=== PATIENT | female | born 1995 | race Caucasian/White ===

== ENCOUNTER 2018-07-28 13:52 | Emergency (ER) | payer BC ==
[2018-07-28 13:57] VITALS: BP 128/80; PULSE 95; RESP 18; TEMP 98.2
--- NOTE | 2018-07-28 14:36 | ED ---
Female Urogenital HPI - General Chief complaint: Urogenital Stated complaint: Urogenital Time Seen by Provider: 07/28/18 14:03 Source: patient, RN notes reviewed, old records reviewed Mode of arrival: ambulatory Limitations: no limitations - History of Present Illness Initial comments: 22-year-old female presents emergency department today for evaluation complains of concern for retained tampon. She is currently on her menstrual cycle. She reports she put a tampon in yesterday to taking this out. She couldn't feel the strings. Patient states she's on her menstrual cycle. She reports she is an avid [employer]. Eyes any dysuria or hematuria. She denies any other complaints including abdominal pain or back pain. Last Menstrual Period: 07/27/18 - Related Data Allergies Allergy/AdvReac Type Severity Reaction Status Date / Time No Known Allergies Allergy Verified 07/28/18 13:57 Review of Systems ROS Statement: Those systems with pertinent positive or pertinent negative responses have been documented in the HPI. ROS Other: All systems not noted in ROS Statement are negative. Past Medical History Past Medical History: No Reported History History of Any Multi-Drug Resistant Organisms: None Reported Past Surgical History: No Surgical Hx Reported Past Psychological History: Anxiety Smoking Status: Never smoker Past Alcohol Use History: Occasional Past Drug Use History: None Reported General Exam - General Exam Comments Initial Comments: 22-year-old female. Alert and oriented. No distress. General: Well appearing, well nourished, in no distress. Oriented x 3, normal mood and affect . Ambulating without difficulty. Skin: Good turgor, no rash, unusual bruising or prominent lesions Hair: Normal texture and distribution. HEENT: Head: Normocephalic, atraumatic, no visible or palpable masses, depressions, or scaring. Heart: No cardiomegaly or thrills; regular rate and rhythm, no murmur or gallop Lungs: Clear to auscultation and percussion Abdomen: Bowel sounds normal, no tenderness, organomegaly, masses, or hernia Back: Spine normal without deformity or tenderness, no CVA tenderness Extremities: No amputations or deformities, cyanosis, edema or varicosities, peripheral pulses intact Musculoskeletal: Normal gait and station. No misalignment, asymmetry, crepitation, defects, tenderness, masses, effusions, decreased range of motion, instability, atrophy or abnormal strength or tone in the head, neck, spine, ribs, pelvis or extremities. Neurologic: CN 2-12 normal. Sensation to pain, touch, and proprioception normal. DTRs normal in upper and lower extremities. No pathologic reflexes. Psychiatric: Oriented X3, intact recent and remote memory, judgment and insight, normal mood and affect. Pelvic: Vagina and cervix without lesions or discharge. No retained tampon. Vaginal bleeding noted. Limitations: no limitations Course Vital Signs 07/28/18 13:55 Temperature 98.2 F Pulse Rate 95 Respiratory 18 Rate Blood Pressure 128/80 O2 Sat by Pulse 99 Oximetry Medical Decision Making - Medical Decision Making [age] female presents with concerns for retained tampon. At this time pelvic exam shows evidence of bleeding but no retained tampon. Vaginal cultures compl eted. Patient is on her period at this time. Discussed trying a safe tampon use. All questions answered. - Lab Data Lab Results 07/28/18 Range/Units 14:39 Trichomonas Ag (Rapid) Negative (Negative) Disposition Clinical Impression: Suspected condition not found Disposition: HOME SELF-CARE Condition: Good Instructions (If sedation given, give patient instructions): Menorrhagia (ED) Additional Instructions: Patient advised to follow-up with primary care doctor. Return to the emergency department if any alarming signs or symptoms occur. Is patient prescribed a controlled substance at d/c from ED?: No Referrals: Anna Farias DO [Primary Care Provider] - 1-2 days Time of Disposition: 14:35
[2018-07-29 14:17] LABS: N. gonorrhoeae,PCR Negative (Neg,Equiv); Neisseria Source Vagina
[2018-07-29 14:24] LABS: C. trachomatis,PCR Negative (Neg,Equiv); Chlamydia trachomatis Source Vagina
== END 2018-07-28 15:05 | disposition home or self-care (01) ==
LOC: EC 13:52
DX: Z03.89 Encounter for observation for other suspected diseases and conditions ruled out (principal)
CPT/HCPCS: 87070; 87205; 87491; 87591; 87808; 99284

== ENCOUNTER 2019-04-02 01:36 | Emergency (ER) | payer BC ==
[2019-04-02 01:54] VITALS: BP 119/80; PULSE 78; RESP 18; TEMP 98.2
[2019-04-02] MEDS ORDERED: SODIUM CHLORIDE 0.9% 500 ML 500 ML IV STA (03:20)
[2019-04-02] MEDS ORDERED: diphenhydrAMINE 50 MG/ML 1 ML VIAL IVP STA (03:20)
[2019-04-02] MEDS ORDERED: KETOROLAC 30 MG/ML 1 ML VIAL IVP STA (03:20)
[2019-04-02] MEDS ORDERED: METOCLOPRAMIDE 5 MG/ML 2 ML VIAL IVP STA (03:20)
--- NOTE | 2019-04-02 03:22 | ED ---
Headache HPI - General Chief Complaint: Headache Stated Complaint: Headache Time Seen by Provider: 04/02/19 02:57 Mode of arrival: ambulatory Limitations: no limitations - History of Present Illness Initial Comments: Patient is a 23-year-old female presenting to the emergency department with a chief complaint of a headache. Patient states the pain started about 3 days ago with a gradual onset has been increasingly worse in severity. Patient does report nausea but no vomiting. She also does report photosensitivity. Denies any visual disturbances. Patient does report occasional lightheadedness but denies any dizziness. Denies one-sided weakness or paresthesias. Denies chest pain, shortness of breath back pain or abdominal pain. Denies a history of headaches or migraines. Denies a history of sinus infections. She is not a smoker. No family history of cerebral neoplasias or brain aneurysms. - Related Data Allergies Allergy/AdvReac Type Severity Reaction Status Date / Time No Known Allergies Allergy Verified 04/02/19 01:54 Review of Systems ROS Statement: Those systems with pertinent positive or pertinent negative responses have been documented in the HPI. ROS Other: All systems not noted in ROS Statement are negative. Past Medical History Past Medical History: No Reported History History of Any Multi-Drug Resistant Organisms: None Reported Past Surgical History: No Surgical Hx Reported Additional Past Surgical History / Comment(s): wisdom teeth, moles removed Past Psychological History: No Psychological Hx Reported Smoking Status: Never smoker Past Alcohol Use History: None Reported Past Drug Use History: None Reported General Exam Limitations: no limitations General appearance: alert, in no apparent distress Head exam: Present: atraumatic, normocephalic, normal inspection Eye exam: Present: normal appearance, PERRL, EOMI Pupils: Present: normal accommodation ENT exam: Present: normal exam, normal oropharynx, mucous membranes dry, mucous membranes moist, TM's normal bilaterally Neck exam: Present: normal inspection, full ROM Respiratory exam: Present: normal lung sounds bilaterally Cardiovascular Exam: Present: regular rate, normal rhythm, normal heart sounds Extremities exam: Present: normal inspection, full ROM, normal capillary refill, other (+2 ulnar and radial pulses bilaterally.) Back exam: Present: normal inspection, full ROM Neurological exam: Present: alert, oriented X3, CN II-XII intact, normal gait, reflexes normal Psychiatric exam: Present: normal affect, normal mood Skin exam: Present: warm, dry, intact, normal color Course Vital Signs 04/02/19 01:50 Temperature 98.2 F Pulse Rate 78 Respiratory 18 Rate Blood Pressure 119/80 O2 Sat by Pulse 100 Oximetry Medical Decision Making - Medical Decision Making Patient a 23-year-old female presenting to the emergency department with a chief complaint of a headache. Neurological examination is unremarkable. Physical examination is unremarkable. Patient does have nausea but no vomiting. Positive photosensitivity. Patient was given fluids, Reglan, Benadryl and Toradol. Reevaluation patient reports improvement of symptoms and is ready go home. This was a gradual onset headache. Not thunderclap headache. Not the worst headache of her life. Strict return parameters were thoroughly discussed with patient was understanding and agreeable. Case discussed with physician. Disposition Clinical Impression: Headache, Nausea, Photosensitivity Disposition: HOME SELF-CARE Condition: Stable Instructions (If sedation given, give patient instructions): Acute Headache (ED) Additional Instructions: Please follow up with primary care. Alternate between Tylenol and Motrin for pain control. Return to emergency department if symptoms worsen. Is patient prescribed a controlled substance at d/c from ED?: No Referrals: Anna Farias DO [Primary Care Provider] - 1-2 days Time of Disposition: 03:22
== END 2019-04-02 04:18 | disposition home or self-care (01) ==
LOC: EC 01:36
DX: R51 Headache (principal); R11.0 Nausea; L56.8 Other specified acute skin changes due to ultraviolet radiation
CPT/HCPCS: 99283; 96374; 96375 ×2; J1200; J2765; J1885